=== PATIENT | female | born 1945 | race Caucasian/White ===

== ENCOUNTER → 2016-10-25 | Outpatient (CLI) | payer OTHER, BC | LOC: HYPER 13:30 | DX: S10.86XA Insect bite of other specified part of neck, initial encounter (principal); Z85.3 Personal history of malignant neoplasm of breast; Z87.891 Personal history of nicotine dependence; W57.XXXA Bitten or stung by nonvenomous insect and other nonvenomous arthropods, initial encounter; Y93.89 Activity, other specified; Y92.89 Other specified places as the place of occurrence of the external cause; Y99.8 Other external cause status ==

== ENCOUNTER → 2018-08-22 | Outpatient (CLI) | payer OTHER, BC | LOC: NUC 12:42 | DX: M85.88 Other specified disorders of bone density and structure, other site (principal) ==

== ENCOUNTER → 2018-09-11 | Outpatient (CLI) | payer OTHER, BC | LOC: RAD 10:37 | DX: C50.911 Malignant neoplasm of unspecified site of right female breast (principal); Z90.13 Acquired absence of bilateral breasts and nipples; Z85.3 Personal history of malignant neoplasm of breast ==

== ENCOUNTER → 2018-11-23 | Outpatient (CLI) | payer OTHER, BC | LOC: CAT 08:51 | DX: R63.4 Abnormal weight loss (principal); E04.1 Nontoxic single thyroid nodule; I25.10 Atherosclerotic heart disease of native coronary artery without angina pectoris; M47.814 Spondylosis without myelopathy or radiculopathy, thoracic region; I70.1 Atherosclerosis of renal artery; K55.1 Chronic vascular disorders of intestine; M47.816 Spondylosis without myelopathy or radiculopathy, lumbar region; K76.89 Other specified diseases of liver; I70.203 Unspecified atherosclerosis of native arteries of extremities, bilateral legs; N83.8 Other noninflammatory disorders of ovary, fallopian tube and broad ligament ==

== ENCOUNTER 2019-01-14 07:09 | Inpatient (IN) | payer OTHER, BC ==
[~2019-01-14] VITALS: Ht 154.9 cm; Wt 51.3 kg
[~2019-01-14 07:09] MED LIST: AMLODIPINE BESY10 MG PO; HAIR, SKIN & N1 EAC2 PO; HYDROCODON-ACE1 EAC5 PO; PAROXETINE HCL40 MG PO; VITAMIN B-121000 MC2 SUBLING; VITAMIN D-32000 UNIT PO
[2019-01-14 10:48] LABS: BE(vivo) -3.3 mmol/L (-2 to +3); HCO3 22.3 mmol/L (22.0-26.0); PCO2 41.9 mmHg (35.0-45.0); pH 7.343 (7.360-7.450); sO2 94.3 % (92.0-98.0)
[2019-01-14 13:57] VITALS: BP 144/83
[2019-01-14 14:49] LABS: ABSOLUTE NEUTROPHILS 10.7 thou/uL (1.4-8.2); BASOPHILS 0.7 % (0.0-2.0); EOSINOPHILS 0.2 % (0.0-3.0); HEMATOCRIT 41.4 % (37.0-47.0); HEMOGLOBIN 13.6 gm/dL (12.0-15.0); LYMPHOCYTES 5.7 % (24.0-44.0); MCH 30.3 pg (26.0-34.0); MCHC 32.9 g/dL (28.0-37.0); MCV 92.1 fL (80.0-100.0); MONOCYTES 3.4 % (1.0-8.0); PLATELET COUNT 170 thou/uL (150-400); RBC 4.49 mil/uL (4.20-5.00); RDW 12.7 % (10.5-14.5); WBC 11.9 thou/uL (4.0-11.0)
[2019-01-14 15:01] LABS: CALCIUM 8.6 mg/dL (8.5-10.1); CREATININE 0.7 mg/dL (0.6-1.0); POTASSIUM 3.1 mmol/L (3.5-5.1)
[2019-01-14 15:07] LABS: TOTAL BILIRUBIN 0.6 mg/dL (<0.1-1.0); TOTAL PROTEIN 7.3 g/dL (6.4-8.2)
[2019-01-14 15:48] VITALS: BP 156/77
--- NOTE | 2019-01-14 15:54 | 2DMMODE ---
[facility] [address] [place] [address] 2 D/M-MODE ECHOCARDIOGRAM Name: STEFFANIE MCWILLIAMS Room #: 211-P ADM IN M.R.#: [id number] Admission: 01/14/19 Attend Phys: Joce Elaine Discharge: Date of : 47 Report #: [id number] THIS REPORT FOR: //name// APPROVED REPORT Study performed: 01/14/2019 14:58:42 EXAM: Comprehensive 2D, Doppler, and color-flow Echocardiogram Patient Location: Bedside Room #: 211 Status: routine BSA: 1.48 HR: 95 bpm BP: 144/83 mmHg Rhythm: NSR Other Information Study Quality: Fair/Not all measurements taken. Restless patient. Technically limited study due to breast implant. Patient uncomfortable. Lung disease. Indications Hypoxic. Hx: HTN, Tob abuse, cancer. 2D Dimensions RVDd: 30.87 mm IVSd: 9.66 (7-11mm) LVOT Diam: 18.98 (18-24mm) LVDd: 28.09 mm PWd: 9.89 (7-11mm) LVDs: 19.55 (25-40mm) Aortic Root: 34.71 mm Volumes Left Atrial Volume (Systole) Single Plane 4CH: 17.91 mL Aortic Valve AoV Peak Charlie.: 1.24 m/s AO Peak Gr.: 6.16 mmHg LVOT Max P.25 mmHg LVOT Max V: 1.25 m/s RAÚL Vmax: 2.85 cm2 Mitral Valve E/A Ratio: 0.7 [facility] [address] [address] 2 D/M-MODE ECHOCARDIOGRAM Name: STEFFANIE MCWILLIAMS Room #: 211-P [facility] IN [facility].#: [id number] Admission: 01/14/19 Attend Phys: Joce Elaine Discharge: Date of : 47 Report #: [id number] MV Decel. Time: 130.82 ms MV E Max Charlie.: 0.80 m/s MV A Charlie.: 1.12 m/s MV PHT: 37.94 ms IVRT: 86.51 ms Pulmonary Valve PV Peak Charlie.: 1.10 m/s PV Peak Gr.: 4.86 mmHg Pulmonary Vein P Vein S: 0.77 m/s P Vein A: 0.39 m/s P Vein D: 0.44 m/s P Vein A Dur.: 79.6 msec P Vein S/D Ratio: 1.75 Tricuspid Valve RAP Estimate: 5.00 mmHg Left Ventricle The left ventricle is normal size. There is normal LV segmental wall motion. Mild basal septal hypertrophy is present. Left ventricular systolic function is normal. LVEF is 65%. Mild diastolic dysfunction is present (impaired relaxation pattern). Right Ventricle The right ventricle is normal size. The right ventricular systolic function is normal. Atria The left atrium size is normal. The right atrium size is normal. Aortic Valve The aortic valve is normal in structure. No aortic regurgitation is present. There is no aortic valvular stenosis. Mitral Valve The mitral valve is normal in structure. There is no mitral valve regurgitation noted. No evidence of mitral valve stenosis. Tricuspid Valve Difficult to assess. Unable to assess PA pressure. Pulmonic Valve Pulmonic valve is not well visualized. Trace pulmonic regurgitation. [facility] [place] [address] 2 D/M-MODE ECHOCARDIOGRAM Name: STEFFANIE MCWILLIAMS Room #: 211-P [facility] IN M.R.#: [id number] Admission: 01/14/19 Attend Phys: Joce Elaine Discharge: Date of : 47 Report #: [id number] Great Vessels The aortic root is normal in size. Ascending aorta is not well visualized. IVC is normal in size and collapses >50% with inspiration. Pericardium There is no pericardial effusion. <Conclusion> Left ventricular systolic function is normal. There is normal LV segmental wall motion. LVEF is 65%. Mild diastolic dysfunction The aortic valve is normal in structure. No aortic regurgitation or stenosis The mitral valve is normal in structure. No mitral valve regurgitation. Unable to assess pulmonary artery pressure. There is no pericardial effusion. <ELECTRONICALLY SIGNED> By: Rufino Pollard MD, FACC 01/14/19 1554 1554 1554 Rufino Pollard MD, [facility] /INF
--- NOTE | 2019-01-14 17:16 | EKG ---
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 01/14/19 1716 D: [id number] Rufino Pollard MD, FACC /EPI
[2019-01-14 18:00] LABS: URINE BILIRUBIN NEGATIVE (Negative); URINE BLOOD NEGATIVE (Negative); URINE CLARITY CLEAR; URINE COLOR YELLOW; URINE GLUCOSE-RANDOM* NEGATIVE (Negative); URINE KETONES 1+ (Negative); URINE LEUKOCYTES NEGATIVE (Negative); URINE NITRITE NEGATIVE (Negative); URINE PROTEIN (DIPSTICK) NEGATIVE (Negative); URINE UROBILINOGEN 0.2 E.U./dl (0.2-1.0)
[2019-01-14 20:15] VITALS: BP 119/60
--- NOTE | 2019-01-15 02:35 | NUR ---
ASSESSMENT CHARTED. VSS. DAUGHTER AT BEDSIDE THROUGHOUT NIGHT. PT CONFUSED AT TIMES BUT OTHERWISE A&OX4. PT C/O CHRONIC BACK PAIN, DENIES CP, SOA, N/V, OR DIZZINESS. FLUIDS AND ABX PER EMAR. X1 ASSIST WITH WALKER TO BATHROOM. PT AND FAMILY AWAITING CT RESULTS FROM YESTERDAY. WILL CONTINUE TO MONITOR AND WITH POC
[2019-01-15 04:55] VITALS: BP 123/76
[2019-01-15 07:59] VITALS: BP 130/87
[2019-01-15] MEDS ORDERED: AUGMENTIN 875-1 EACH PO (10:42)
[2019-01-15 11:56] VITALS: BP 111/53
[2019-01-15 12:12] VITALS: BP 111/53
--- NOTE | 2019-01-15 14:14 | NUR ---
ASSUMED CARE OF PT AT SHIFT CHANGE. ASSESSMENT CHARTED. MEDS GIVEN PER MAY. VSS. A&OX4. PT ON 2L NC, BUT D/C BEFORE DISCHARGE AND DID WELL. C/O CHRONIC PAIN TREATED WITH PO MEDS. DAUGHTER AT BEDSIDE. TOLERATED CLEAR LIQUID DIET WELL. D/C ORDERS COMPLETE, IV AND TELE D/C'D. TRANSPORTED HOME VIA DAUGHTERS CAR.
--- NOTE | 2019-01-17 08:04 | P ---
[facility] [place] [address] PROCEDURE REPORT Name: STEFFANIE MCWILLIAMS Room #: 211-P [facility] IN M.R.#: [id number] Admission: 01/14/19 Attend Phys: Cachorro Klein MD Discharge: 01/15/19 Date of : 47 Report #: [id number] THIS REPORT FOR: //name// CC: Cachorro Pastor MD OUTPATIENT COLONOSCOPY REPORT BRIEF HISTORY: The patient is a 73-year-old woman with a number of complaints including change in bowel habits as well as weight loss. She has noted that stools are less frequent and have changed in consistency and caliber. PREOPERATIVE DIAGNOSES: Moderate change in bowel habits and weight loss. POSTOPERATIVE DIAGNOSES: 1. Moderate sigmoid diverticulosis coli. 2. Small internal hemorrhoids. MEDICATIONS: Deep sedation with propofol per anesthesia. SPECIMEN: None. ESTIMATED BLOOD LOSS: None. PROCEDURE: Colonoscopy to cecum and terminal ileum. FINDINGS: Prior to propofol sedation, procedure of colonoscopy discussed with the patient as well as potential risks and its complications. She indicates she understands and desires to proceed. DESCRIPTION OF PROCEDURE: With the patient in left lateral decubitus position, digital examination was completed, which revealed no abnormalities. Subsequently, the Olympus video colonoscope was introduced in the rectum, advanced under direct vision to the cecum. This was done with minimal difficulty. The cecum was identified by the ileocecal valve and the appendiceal orifice. I was able to visualize the distal segment of the terminal ileum, which was inspected and noted to be unremarkable. At that point, the scope was slowly withdrawn and careful circumferential views were obtained. Upon slow withdrawal of the scope, the prep was good. The mucosa was within normal limits, normal vascular pattern, normal light reflex. No mucosal abnormalities were seen. No neoplastic lesions were seen. Obstructing lesions were not seen. The colon and mucosa remained normal into the sigmoid colon. At that point, she was noted to have multiple scattered small diverticula. There was no endoscopic evidence of diverticulitis. The scope was withdrawn in the rectum and no abnormalities were seen. However, upon retroflexion, small internal hemorrhoids were seen. Scope was withdrawn. The patient tolerated the [facility] [address] [place] [address] PROCEDURE REPORT Name: STEFFANIE MCWILLIAMS Room #: 211-P [facility] IN M.R.#: [id number] Admission: 01/14/19 Attend Phys: Cachorro Klein MD Discharge: 01/15/19 Date of : 47 Report #: [id number] procedure well. CONDITION OF THE PATIENT UPON DISCHARGE: Following procedure, the patient was drowsy. It was noted that during the colonoscopy she had vomited some bilious material. Anesthesia will watch her for a period of time after the procedure with regards to the potential of aspiration. INSTRUCTIONS TO THE PATIENT AND FAMILY AT THE TIME OF DISCHARGE: No obstructing lesions were seen. No neoplastic lesions were seen. She has had change in bowel habits and increasing complaints of constipation. She does take hydrocodone 3 times daily, which may be the culprit. We will have her use MiraLax on a daily basis. Also high fiber diet may be helpful. She has used some Dulcolax and will be okay to use it intermittently, but would avoid using on a consistent long-term basis. If the constipation continues to be a problem, she will return to see me in followup in the office. No neoplastic lesions were seen on today's exam. There is no family history of colon cancer. Suggest followup colon exam in 10 years for average risk screening. <ELECTRONICALLY SIGNED> By: Cachorro Klein MD 01/17/19 0804 [id number] 1100 Cachorro Klein MD /nt
--- NOTE | 2019-01-17 08:04 | P ---
[facility] [place] [address] PROCEDURE REPORT Name: STEFFANIE MCWILLIAMS Room #: 211-P [facility] IN M.R.#: [id number] Admission: 01/14/19 Attend Phys: Cachorro Klein MD Discharge: 01/15/19 Date of : 47 Report #: [id number] THIS REPORT FOR: //name// CC: Cachorro Pastor MD DATE OF SERVICE: 01/14/2019 OUTPATIENT UPPER ENDOSCOPY REPORT BRIEF HISTORY: The patient is a 73-year-old woman, who reports a 27-pound weight loss in the past 6 months. She also describes difficulty swallowing and bouts of severe epigastric pain and vomiting. PREOPERATIVE DIAGNOSES: Epigastric pain, nausea, vomiting, and dysphagia. POSTOPERATIVE DIAGNOSES: 1. Grade C esophagitis limited to the squamocolumnar junction. 2. Diffuse gastritis. 3. Dysphagia. MEDICATIONS: Deep sedation with propofol per anesthesia. SPECIMEN: None. ESTIMATED BLOOD LOSS: None. PROCEDURE: EGD and William dilation. FINDINGS: Prior to propofol sedation, procedure of upper endoscopy and dilation was reviewed with the patient as well as potential risks and its complications. She indicates she understands and desires to proceed. DESCRIPTION OF PROCEDURE: With the patient in left lateral decubitus position, the Olympus video endoscope was inserted in the cervical esophagus under direct vision without difficulty. The examination of this organ through its entire length revealed normal esophageal mucosa throughout the esophagus. No abnormalities were noted until the squamocolumnar junction was reached. There was a linear erosion right along the squamocolumnar junction, but not into the body of the esophagus. It was consistent with a grade C esophagitis as it connected several folds. The definite stricture or mass was not seen. A significant hiatus hernia was not seen. The scope was advanced in the stomach and was examined on end view as well as retroflexed views. There was moderate antral gastritis. This has been noted in the past and previous biopsies for H. [facility] [address] [place] [address] PROCEDURE REPORT Name: OJSTEFFANIE Room #: [address] [place] [address] IN M.R.#: [id number] Admission: 01/14/19 Attend Phys: Cachorro Klein MD Discharge: 01/15/19 Date of : 47 Report #: [id number] pylori were negative and those were not repeated today. Upon retroflexion, no mass lesions were seen. There were no retained solids or liquids in the stomach. The pylorus, duodenal bulb, and post duodenal sweep were all inspected and noted to be unremarkable. At that point, the scope was slowly withdrawn and the careful circumferential views confirmed the above findings. The patient tolerated the procedure well. Following the procedure, she was dilated with a passage of 52-Lao William dilator. There was no resistance. CONDITION OF THE PATIENT UPON DISCHARGE: Following procedure, the patient was drowsy and prepared for a colonoscopy. INSTRUCTIONS TO THE PATIENT AND FAMILY AT THE TIME OF DISCHARGE: She had multiple complaints as noted above. As far as dysphagia, I did not see any strictures or rings. She was dilated as described above. As for epigastric pain, she does have the esophagitis. I do not see peptic ulcer disease. We will obtain an ultrasound of the gallbladder for further evaluation since she reports that it radiates into her back. She has also had nausea and vomiting. She does take hydrocodone 3 times daily and has done so on a long-term basis. This may be the culprit with regards to those symptoms. We will place her on pantoprazole 40 mg daily. Also, obtain an ultrasound of the gallbladder. Proceed with colonoscopy at this time. <ELECTRONICALLY SIGNED> By: Cachorro Klein MD 01/17/19 0804 [id number] [id number] Cachorro Klein MD /nt
== END 2019-01-15 13:18 | disposition home or self-care (01) | DRG 177 ==
LOC: GI 07:09 → 2N 13:53 → GI 13:56 → 2N 13:59 → ENTRNSPT 01-15 12:56 → EDTRNSPTSTS 01-15 12:59 → 2N 01-15 13:18
PROVIDERS: Specialist; ADMIT Internal Medicine
DX: J69.0 Pneumonitis due to inhalation of food and vomit (principal); J96.01 Acute respiratory failure with hypoxia; E44.0 Moderate protein-calorie malnutrition; K57.30 Diverticulosis of large intestine without perforation or abscess without bleeding; K64.8 Other hemorrhoids; K20.9 Esophagitis, unspecified; J44.9 Chronic obstructive pulmonary disease, unspecified; I10 Essential (primary) hypertension; F17.290 Nicotine dependence, other tobacco product, uncomplicated; K29.60 Other gastritis without bleeding; R13.10 Dysphagia, unspecified; F32.9 Major depressive disorder, single episode, unspecified; Z98.891 History of uterine scar from previous surgery; Z85.3 Personal history of malignant neoplasm of breast; Z79.891 Long term (current) use of opiate analgesic; Z79.899 Other long term (current) drug therapy; Z68.21 Body mass index [BMI] 21.0-21.9, adult
CPT/HCPCS: 10081; 62110; 62900; 70005

== ENCOUNTER → 2019-05-27 | Outpatient (CLI) | payer OTHER, BC ==
[~2019-05-27] MED LIST changes: +AUGMENTIN 875-1 EACH PO
== END ==
LOC: SJCVCIMAG 05-21 16:41
PROVIDERS: ATTEND Internal Medicine
DX: I70.213 Atherosclerosis of native arteries of extremities with intermittent claudication, bilateral legs (principal); I11.0 Hypertensive heart disease with heart failure; I50.32 Chronic diastolic (congestive) heart failure; E78.5 Hyperlipidemia, unspecified; C50.211 Malignant neoplasm of upper-inner quadrant of right female breast; I77.1 Stricture of artery; J43.9 Emphysema, unspecified; Z17.0 Estrogen receptor positive status [ER+]; Z79.899 Other long term (current) drug therapy; Z87.891 Personal history of nicotine dependence

== ENCOUNTER → 2019-11-27 | Outpatient (CLI) | payer OTHER, BC | LOC: SJCVC 11:11 | PROVIDERS: ATTEND Internal Medicine | DX: R94.31 Abnormal electrocardiogram [ECG] [EKG] (principal); I11.0 Hypertensive heart disease with heart failure; I50.32 Chronic diastolic (congestive) heart failure; E78.5 Hyperlipidemia, unspecified; I77.1 Stricture of artery; J43.9 Emphysema, unspecified; Z79.899 Other long term (current) drug therapy; Z87.891 Personal history of nicotine dependence ==

== ENCOUNTER → 2019-12-10 | Outpatient (CLI) | payer OTHER, BC | LOC: ULTRA 14:17 | PROVIDERS: ATTEND Neuromusculoskeletal Medicine & OMM | DX: I65.23 Occlusion and stenosis of bilateral carotid arteries (principal); R42 Dizziness and giddiness; R29.6 Repeated falls ==

== ENCOUNTER → 2020-01-23 | Outpatient (CLI) | payer OTHER, BC | LOC: MRI 10:03 | PROVIDERS: ATTEND Neuromusculoskeletal Medicine & OMM | DX: M50.822 Other cervical disc disorders at C5-C6 level (principal); M48.02 Spinal stenosis, cervical region; I67.82 Cerebral ischemia ==

== ENCOUNTER → 2020-01-28 | Outpatient (CLI) | payer OTHER, BC | LOC: SJCVC 14:05 | PROVIDERS: ATTEND Internal Medicine | DX: R94.31 Abnormal electrocardiogram [ECG] [EKG] (principal); I11.0 Hypertensive heart disease with heart failure; I50.32 Chronic diastolic (congestive) heart failure; J43.9 Emphysema, unspecified; I77.1 Stricture of artery; E78.5 Hyperlipidemia, unspecified ==

== ENCOUNTER → 2020-05-29 | Outpatient (CLI) | payer OTHER, BC | LOC: SJCVC 11:10 | PROVIDERS: ATTEND Internal Medicine | DX: I49.8 Other specified cardiac arrhythmias (principal); I50.32 Chronic diastolic (congestive) heart failure; I11.0 Hypertensive heart disease with heart failure; E78.5 Hyperlipidemia, unspecified; I77.1 Stricture of artery; J43.9 Emphysema, unspecified; M19.90 Unspecified osteoarthritis, unspecified site; K21.9 Gastro-esophageal reflux disease without esophagitis; M81.0 Age-related osteoporosis without current pathological fracture; Z87.01 Personal history of pneumonia (recurrent); Z87.891 Personal history of nicotine dependence; Z72.89 Other problems related to lifestyle; Z79.1 Long term (current) use of non-steroidal anti-inflammatories (NSAID); Z79.899 Other long term (current) drug therapy; Z88.1 Allergy status to other antibiotic agents ==

== ENCOUNTER → 2020-12-11 | Outpatient (CLI) | payer OTHER, BC | LOC: SJCVCIMAG 08:26 | PROVIDERS: ATTEND Internal Medicine | DX: I11.0 Hypertensive heart disease with heart failure (principal); I50.32 Chronic diastolic (congestive) heart failure; I77.1 Stricture of artery; E78.5 Hyperlipidemia, unspecified; J43.9 Emphysema, unspecified; I65.23 Occlusion and stenosis of bilateral carotid arteries; M19.90 Unspecified osteoarthritis, unspecified site; K21.9 Gastro-esophageal reflux disease without esophagitis; Z87.891 Personal history of nicotine dependence; Z82.49 Family history of ischemic heart disease and other diseases of the circulatory system; Z79.899 Other long term (current) drug therapy; Z72.89 Other problems related to lifestyle; Z79.891 Long term (current) use of opiate analgesic; Z88.1 Allergy status to other antibiotic agents ==